=== PATIENT | male | born 1965 | race Caucasian/White ===

== ENCOUNTER 2019-12-20 09:04 | Emergency (ER) | payer OTHER ==
[2019-12-20] MEDS: Sodium Chloride 0.9% 10 ML Syringe FLUSH PRN (09:33)
--- NOTE | 2019-12-20 10:03 | EDM.PDOC ---
ED HPI GENERAL MEDICAL PROBLEM - General Chief Complaint: General Stated Complaint: R SIDE LB/ARM/CHEST PX Time Seen by Provider: 12/20/19 09:50 Source of Information: Reports: Patient History Limitations: Reports: No Limitations - History of Present Illness Onset: Gradual Duration: Chronic Location: Reports: Chest, Back, Upper Extremity, Right Quality: Reports: Ache, Sharp Severity: Mild Improves with: Reports: None Worsens with: Reports: None Associated Symptoms: Reports: Chest Pain. Denies: Cough, Diaphoresis, Fever/Chills, Headaches, Nausea/Vomiting, Shortness of Breath Right Generalized Pain Score (Numeric/FACES): 10 - Related Data Allergies Allergy/AdvReac Type Severity Reaction Status Date / Time lactose Allergy Stomach Verified 12/20/19 09:16 Upset lisinopril Allergy Cough Verified 12/20/19 09:16 pravastatin Allergy Cannot Verified 12/20/19 10:11 Remember simvastatin Allergy Cannot Verified 12/20/19 10:11 Remember Home Meds: Home Meds Aspirin [Aspirin EC] 81 mg PO DAILY 12/20/19 [History] Budesonide/Formoterol Fumarate [Budesonide-Formoterol 80-4.5] 2 puff INH BID 12/20/19 [History] Enalapril Maleate 5 mg PO BID 12/20/19 [History] Lactase 3,000 unit PO DAILY 12/20/19 [History] Metoprolol Succinate 50 mg PO DAILY 12/20/19 [History] Tolnaftate [Anti-Fungal] 1 applic TOP BID PRN 12/20/19 [History] ED ROS GENERAL - Review of Systems Review Of Systems: Comprehensive ROS is negative, except as noted in HPI. Constitutional: Reports: No Symptoms HEENT: Reports: No Symptoms Respiratory: Reports: No Symptoms. Denies: Shortness of Breath Cardiovascular: Reports: Chest Pain. Denies: Blood Pressure Problem Endocrine: Reports: No Symptoms GI/Abdominal: Reports: No Symptoms : Reports: No Symptoms Musculoskeletal: Reports: No Symptoms Skin: Reports: No Symptoms Neurological: Reports: No Symptoms Psychiatric: Reports: No Symptoms Hematologic/Lymphatic: Reports: No Symptoms Immunologic: Reports: No Symptoms ED EXAM, GENERAL - Physical Exam Exam: See Below Exam Limited By: No Limitations General Appearance: Alert, WD/WN, No Apparent Distress Nose: Normal Inspection, Normal Mucosa, No Blood Throat/Mouth: Normal Inspection, Normal Oropharynx, No Airway Compromise Head: Atraumatic, Normocephalic Neck: Normal Inspection, Supple, Full Range of Motion, Tender Lateral, Other (Mild tenderness with radiation to right upper extremity with compression of cervical spine) Respiratory/Chest: No Respiratory Distress, Lungs Clear, Normal Breath Sounds, No Accessory Muscle Use Cardiovascular: Normal Peripheral Pulses, Regular Rate, Rhythm, No Murmur, No Rub Peripheral Pulses: 2+: Brachial (L), Brachial (R), Radial (L), Radial (R) GI/Abdominal: Normal Bowel Sounds, Soft, Non-Tender, Distended, Other (Obese). No: Guarding, Rigid, Rebound, Tender Back Exam: Other (Tenderness to right scapula with palpation and range of motion). No: CVA Tenderness (L), CVA Tenderness (R) Extremities: Normal Inspection, No Pedal Edema, Normal Capillary Refill Neurological: Alert, Oriented, Normal Cognition Psychiatric: Normal Affect, Normal Mood Skin Exam: Warm, Dry, Intact, Normal Color, No Rash Lymphatic: No Adenopathy EKG INTERPRETATION EKG Date: 12/20/19 Time: 09:50 Rhythm: NSR [place]: Normal P-Wave: Present QRS: LBBB ST-T: Normal QT: Normal Comparison: No Change (From the 06/06/2019) Course - Vital Signs Last Recorded V/S: Last Vital Signs Temp 98.3 F 12/20/19 09:08 Pulse 62 12/20/19 09:08 Resp 20 12/20/19 09:08 BP 137/75 12/20/19 09:08 Pulse Ox 96 12/20/19 09:08 - Orders/Labs/Meds Orders: Active Orders 24 hr Category Date Time Status EKG Documentation Completion [RC] ASDIRECTED Care 12/20/19 09:37 Active Peripheral IV Care [RC] . DIRECTED Care 12/20/19 09:26 Active Chest 2V [CR] Stat Exams 12/20/19 09:26 Ordered COMPREHENSIVE METABOLIC PN,CMP [CHEM] Stat Lab 12/20/19 09:30 Received TROPONIN I [CHEM] Stat Lab 12/20/19 09:30 Received Sodium Chloride 0.9% [Saline Flush] Med 12/20/19 09:26 Active 10 ml FLUSH Q8HR PRN Peripheral IV Insertion Adult [OM.PC] Routine Oth 12/20/19 09:26 Ordered EKG 12 Lead [EK] Stat Ther 12/20/19 09:37 Ordered Medication Orders Sodium Chloride (Saline Flush) 10 ml FLUSH Q8HR PRN PRN Reason: keep vein open Last Admin: 12/20/19 09:33 Dose: 10 ml Documented by: CLARITA Labs: Laboratory Tests 12/20/19 Range/Units 09:30 WBC 6.45 (5.00-10.00) 10^3/uL RBC 5.66 (4.50-6.00) 10^6/uL Hgb 15.9 (13.0-17.0) g/dL Hct 49.4 (40.0-52.0) % MCV 87.3 (82.0-92.0) fL MCH 28.1 (27.0-31.0) pg MCHC 32.2 (32.0-36.0) g/dL RDW 13.5 (11.5-14.5) % Plt Count 238 (150-400) 10^3/uL MPV 10.0 (7.4-10.4) fL Immature Gran % (Auto) 0.3 (0.0-5.0) % Neut % (Auto) 71.4 H (50.0-70.0) % Lymph % (Auto) 15.7 L (20.0-40.0) % [place] % (Auto) 10.4 H (2.0-8.0) % Eos % (Auto) 1.7 (1.0-3.0) % Baso % (Auto) 0.5 (0.0-1.0) % Neut # (Auto) 4.61 (2.50-7.00) 10^3/uL Lymph # (Auto) 1.01 (1.00-4.00) 10^3/uL [place] # (Auto) 0.67 (0.10-0.80) 10^3/uL Eos # (Auto) 0.11 (0.10-0.30) 10^3/uL Baso # (Auto) 0.03 (0.00-0.10) 10^3/uL Immature Gran # (Auto) 0.02 (0.00-0.50) 10^3/uL Meds: Medications Generic Name Dose Route Start Last Admin Trade Name Freq PRN Reason Stop Dose Admin Sodium Chloride 10 ml 12/20/19 09:26 12/20/19 09:33 Saline Flush FLUSH 10 ml Q8HR PRN Administration keep vein open - Radiology Interpretation Free Text/Narrative:: Chest x-ray shows no acute cardiopulmonary process - Re-Assessments/Exams Free Text/Narrative Re-Assessment/Exam: 12/20/19 10:41 Patient afebrile, nontoxic appearing, troponin negative and EKG left bundle branch block of chronic nature. Patient will follow-up at the [facility] Departure - Departure Time of Disposition: 10:42 Disposition: Home, Self-Care 01 Condition: Good Clinical Impression: Cervical radiculopathy - Discharge Information Instructions: Nonspecific Chest Pain, Adult, Cervical Radiculopathy, [id number] Referrals: Niya Vazquez MD [Primary Care Provider] - Additional Instructions: Follow-up at the [facility] next scheduled appointment. Return to emergency department sooner symptoms continue or worsen. Sepsis Event Note (ED) - Evaluation Sepsis Screening Result: No Definite Risk - Focused Exam Vital Signs: Vital Signs Temp Pulse Resp BP Pulse Ox 12/20/19 09:08 98.3 F 62 20 137/75 96 - My Orders Last 24 Hours: My Active Orders 12/20/19 09:26 Peripheral IV Care [RC] . DIRECTED Chest 2V [CR] Stat Sodium Chloride 0.9% [Saline Flush] 10 ml FLUSH Q8HR PRN Peripheral IV Insertion Adult [OM.PC] Routine 12/20/19 09:30 COMPREHENSIVE METABOLIC PN,CMP [CHEM] Stat TROPONIN I [CHEM] Stat 12/20/19 09:37 EKG Documentation Completion [RC] ASDIRECTED EKG 12 Lead [EK] Stat - Assessment/Plan Last 24 Hours: My Active Orders 12/20/19 09:26 Peripheral IV Care [RC] . DIRECTED Chest 2V [CR] Stat Sodium Chloride 0.9% [Saline Flush] 10 ml FLUSH Q8HR PRN Peripheral IV Insertion Adult [OM.PC] Routine 12/20/19 09:30 COMPREHENSIVE METABOLIC PN,CMP [CHEM] Stat TROPONIN I [CHEM] Stat 12/20/19 09:37 EKG Documentation Completion [RC] ASDIRECTED EKG 12 Lead [EK] Stat Assessment:: Cervical radiculopathy Plan: Follow-up at [facility]
[2019-12-20 10:07] LABS: ANION GAP 17.7 mmol/L (5-15); CHLORIDE,CL 101 mmol/L (98-115); SODIUM,NA 141 mmol/L (136-145)
--- NOTE | 2019-12-20 10:39 | CR ---
[id number] RAD/RAD Chest PA And Lateral EXAM: RAD Chest PA And Lateral INDICATION: RIGHT ARM/CHEST/BACK PAIN. COMPARISON: CT from 2012. DISCUSSION: Cardiomediastinal silhouette is normal in size and contour. No infiltrate, effusion, pneumothorax, or edema. IMPRESSION: Negative examination of the chest. Dalton Lewis MD 12/20/19 1038 Thank you for allowing us to participate in the care of your patient.
== END 2019-12-20 10:50 | disposition home or self-care (01) ==
LOC: KA.ED 09:04
DX: M54.12 Radiculopathy, cervical region (principal); Z91.011 Allergy to milk products; Z88.8 Allergy status to other drugs, medicaments and biological substances; Z79.82 Long term (current) use of aspirin; Z79.899 Other long term (current) drug therapy
CPT/HCPCS: 36415; 71046; 80053; 84484; 85025; 93005; 99284; 99285-25

== ENCOUNTER 2022-06-17 14:05 | Emergency (ER) | payer OTHER ==
[2022-06-17] MEDS ORDERED: Aspirin 81 MG Tab.Chew ONE (14:15)
[2022-06-17] MEDS ORDERED: Nitroglycerin 0.4 MG Tab.SL ONE (14:15)
[2022-06-17] MEDS ORDERED: Sodium Chloride 0.9% 10 ML Syringe FLUSH PRN (14:20)
[2022-06-17] MEDS ORDERED: Aspirin 81 MG Tab.Chew PO ONE (14:21)
[2022-06-17] MEDS ORDERED: Morphine 4 MG/ML Syringe IVPUSH ONE (14:21)
[2022-06-17] MEDS ORDERED: Morphine 4 MG/ML Syringe ONE (14:21)
[2022-06-17] MEDS ORDERED: Nitroglycerin 0.4 MG Tab.SL SL ONE (14:21)
[2022-06-17 14:40] LABS: ANION GAP 10.7 mmol/L (5-15)
[2022-06-17] MEDS ORDERED: Ketorolac 30 MG/ML SDV IVPUSH ONE (15:05)
[2022-06-17] MEDS ORDERED: Aluminum Hydroxide/Magnesium Hydroxide/Simethicone Susp 30 ML Cup PO ONE (15:22)
[2022-06-17 15:25] LABS: RESPIRATORY SYNCYTIAL VIR NAA NEGATIVE (NEGATIVE)
[2022-06-17 15:26] LABS: CORONAVIRUS COVID-19 NAA NEGATIVE (NEGATIVE)
[2022-06-17 16:40] VITALS: BP 154/84; PULSE 58
== END 2022-06-17 17:05 | disposition home or self-care (01) ==
LOC: KA.ED 14:05
DX: R07.89 Other chest pain (principal); R07.81 Pleurodynia; I44.7 Left bundle-branch block, unspecified; I11.0 Hypertensive heart disease with heart failure; I50.9 Heart failure, unspecified; J44.9 Chronic obstructive pulmonary disease, unspecified; E66.9 Obesity, unspecified; Z68.43 Body mass index [BMI] 50.0-59.9, adult; Z91.011 Allergy to milk products; Z88.8 Allergy status to other drugs, medicaments and biological substances; Z79.82 Long term (current) use of aspirin; Z79.899 Other long term (current) drug therapy; Z20.822 Contact with and (suspected) exposure to COVID-19
CPT/HCPCS: 0241U; 36415; 71045; 80053; 83880; 84484; 85027; 85379; 93010; 96374; 96375; 99284; 99285-25; A9270-GY; J1885; J2270

== ENCOUNTER 2022-08-19 21:50 | Emergency (ER) | payer OTHER ==
[2022-08-19] MEDS: Cephalexin 250 MG Cap PO ONE (22:29)
[2022-08-19] MEDS: Silver Sulfadiazine 1% Crm 25 GM Tube TOP ONE (22:29)
== END 2022-08-19 22:43 | disposition home or self-care (01) ==
LOC: KA.ED 21:50
DX: T33 Superficial frostbite (principal); I11.0 Hypertensive heart disease with heart failure; I50.9 Heart failure, unspecified; E66.9 Obesity, unspecified; Z77.22 Contact with and (suspected) exposure to environmental tobacco smoke (acute) (chronic); Z91.011 Allergy to milk products; Z88.8 Allergy status to other drugs, medicaments and biological substances; Z79.82 Long term (current) use of aspirin; Z68.43 Body mass index [BMI] 50.0-59.9, adult; X31.XXXA Exposure to excessive natural cold, initial encounter
CPT/HCPCS: 99283; A9270-GY